=== PATIENT | male | born 1960 | race Caucasian/White ===

== ENCOUNTER 2020-08-19 17:51 | Emergency (ER) | payer BC ==
[2020-08-19] MEDS ORDERED: LIDOCAINE 1% INJ 10MG/ML (20 ML MDV) SQ ONE (19:40)
--- NOTE | 2020-08-19 19:42 | ED ---
Skin/Abscess/FB HPI - General Chief complaint: Skin/Abscess/Foreign Body Stated complaint: infection on arm Time Seen by Provider: 08/19/20 19:36 Source: patient, RN notes reviewed Mode of arrival: ambulatory Limitations: no limitations - History of Present Illness Initial comments: This a 59-year-old male presents emergency Department chief complaint of right wrist abscess. Patient states started with which appeared to be small blister a few days ago. Patient states it started increasing in size and redness. Patient states she's had small amount of drainage. Patient has been taking doxycycline bedside helping. Denies any fevers chills has normal drug ALLERGIES. Patient is right-hand dominant. Denies any foreign body. - Related Data Previous Rx's Medication Instructions Recorded Cephalexin [Keflex] 500 mg PO Q6HR #40 cap 08/19/20 Ibuprofen [Motrin] 600 mg PO Q8HR PRN #20 tab 08/19/20 Sulfamethox-Tmp 800-160Mg [Bactrim 1 each PO Q12HR #20 tab 08/19/20 Ds] Allergies Allergy/AdvReac Type Severity Reaction Status Date / Time No Known Allergies Allergy Verified 08/19/20 18:01 Review of Systems ROS Statement: Those systems with pertinent positive or pertinent negative responses have been documented in the HPI. ROS Other: All systems not noted in ROS Statement are negative. Past Medical History Past Medical History: No Reported History History of Any Multi-Drug Resistant Organisms: None Reported Past Surgical History: No Surgical Hx Reported Past Psychological History: No Psychological Hx Reported Smoking Status: Current every day smoker Past Alcohol Use History: None Reported Past Drug Use History: None Reported General Exam Limitations: no limitations General appearance: alert, in no apparent distress Head exam: Present: atraumatic, normocephalic, normal inspection Respiratory exam: Present: normal lung sounds bilaterally. Absent: respiratory distress, wheezes, rales, rhonchi, stridor Cardiovascular Exam: Present: regular rate, normal rhythm, normal heart sounds. Absent: systolic murmur, diastolic murmur, rubs, gallop, clicks Extremities exam: Present: other (Right wrist ventral aspect there is 3 cm abscess surrounding erythema and skin changes noted) Course Vital Signs 08/19/20 17:57 Temperature 97.6 F Pulse Rate 88 Respiratory 16 Rate Blood Pressure 150/105 O2 Sat by Pulse 98 Oximetry Procedures - Incision & Drainage Consent Obtained: written consent Site: upper extremity (Right wrist) Size (cm): 3 Anesthetic Used: lidocaine 1%, without epi Amount (mLs): 5 I&D Cleaning Method: Alcohol Wipe Sterile Field Used?: No Scalpel Used: #11 I&D Drainage Obtained: Pus, Blood Culture Obtained?: Yes Patient Tolerated Procedure: well, no complications Medical Decision Making - Medical Decision Making 59-year-old presented for wrist abscess. This was I&D there is a large amount of purulent drainage. Patient we discharged on Keflex and Bactrim. Patient advised follow-up within 24 hours for recheck return for any worsening change in symptoms. Disposition Clinical Impression: Abscess of skin of right wrist Disposition: HOME SELF-CARE Condition: Stable Instructions (If sedation given, give patient instructions): Abscess Incision and Drainage (DC) Additional Instructions: Please return to the Emergency Department if symptoms worsen or any other concerns. Prescriptions: Sulfamethox-Tmp 800-160Mg [Bactrim Ds] 1 each PO Q12HR #20 tab Cephalexin [Keflex] 500 mg PO Q6HR #40 cap Ibuprofen [Motrin] 600 mg PO Q8HR PRN #20 tab PRN Reason: Pain Is patient prescribed a controlled substance at d/c from ED?: No Referrals: Sandy Seals DO [Primary Care Provider] - 1-2 days Time of Disposition: 20:05
[2020-08-19] MEDS ORDERED: SULFAMETH-TMP DS STARTER PACK 2 TAB BTL PO STA (19:59)
[2020-08-19] MEDS ORDERED: CEPHALEXIN 500MG STARTER PACK 4 CAP BTL PO STA (19:59)
[2020-08-19] MEDS ORDERED: ACET/COD 300 MG/30 MG STARTER PACK 6 TAB BTL PO STA (19:59)
[2020-08-19] MEDS ORDERED: BACITRACIN OINT 1 EACH PACKET TOPICAL ONE (19:59)
[2020-08-19 20:21] VITALS: BP 139/91; PULSE 75; RESP 18; TEMP 98.5
== END 2020-08-19 20:20 | disposition home or self-care (01) ==
LOC: EC 17:51
DX: L02.413 Cutaneous abscess of right upper limb (principal); F17.200 Nicotine dependence, unspecified, uncomplicated
CPT/HCPCS: 87070; 87205; 87077; 87186; 99283; 10060; J2001